=== PATIENT | male | born 1965 | race Caucasian/White ===

== ENCOUNTER → 2016-10-25 | Outpatient (CLI) | payer BC ==
[~2016-10-25] VITALS: Ht 177.8 cm; Wt 95.3 kg
[~2016-10-25] MED LIST: ALEVE220 MG PO; ALLEGRA-D 121 TABLET PO; AMARYL2 MG PO; ANTIVERT25 MG PO; ASPIRIN81 M2 PO; ATORVASTATIN CA40 MG PO; CARDIZEM60 MG PO; CARVEDILOL3.125 MG PO; CARVEDILOL6.25 MG PO; CENTRUM SILVER1 EAC3 PO; CLINDAMYCIN HC300 MG PO; CLOBETASOL TP; COREG12.5 M1 PO; FLECAINIDE ACE100 MG PO; FLONASE16 G1 BOTH NARES; GLUCOPHAGE1000 MG PO; HUMIRA40 MG/0.1 SC; JANUVIA100 MG PO; LEVEMIR FL100 UNIT/1 SC; LEVEMIR100 UNIT/2 SC; LISINOPRIL40 MG PO; ONGLYZA5 MG PO; SILVADENE20 GM TP; TAMBOCOR50 MG PO; XARELTO20 MG PO
[2016-10-25 12:44] LABS: POINT-OF-CARE METER ID UU13113694
== END | disposition home or self-care (01) ==
LOC: AMB 11:59
PROVIDERS: Internal Medicine Gastroenterology
PROC: 0DJD8ZZ Inspection of Lower Intestinal Tract, Via Natural or Artificial Opening Endoscopic (ICD-10-PCS; principal; 2016-10-25)
DX: Z12.11 Encounter for screening for malignant neoplasm of colon (principal); K64.8 Other hemorrhoids; I10 Essential (primary) hypertension; E11.9 Type 2 diabetes mellitus without complications; I48.91 Unspecified atrial fibrillation; G47.30 Sleep apnea, unspecified; I25.10 Atherosclerotic heart disease of native coronary artery without angina pectoris; E78.00 Pure hypercholesterolemia, unspecified; Z79.4 Long term (current) use of insulin; Z79.84 Long term (current) use of oral hypoglycemic drugs; Z79.899 Other long term (current) drug therapy; Z79.01 Long term (current) use of anticoagulants; Z88.0 Allergy status to penicillin
CPT/HCPCS: 82948

== ENCOUNTER 2016-11-27 07:32 | Emergency (ER) | payer BC ==
[~2016-11-27] VITALS: Ht 177.8 cm; Wt 95.4 kg
[2016-11-27 08:43] LABS: EOSINOPHIL (%) 5.6 % (0-5); EOSINOPHIL COUNT 0.4 K/uL (0-0.3); HEMATOCRIT 44.6 % (38.0-50.0); IMMATURE GRANULOCYTE (%) 0.3 % (0.0-0.7); INSTRUMENT ABS NEUTROPHIL CT 3.8 K/uL; LYMPHOCYTE COUNT 1.5 K/uL (1.0-2.8); MCH 30.3 PG (29.0-34.0); MCV 86.6 FL (86-99); MEAN PLAT.VOLUME 10.1 uM^3 (9.0-12.4); MONOCYTE (%) 9.8 % (3-12); MONOCYTE COUNT 0.6 K/uL (0-0.8); NEUTROPHIL (%) 60.6 % (45-76); NEUTROPHIL COUNT 3.8 K/uL (1.8-6.4); PLATELET COUNT 234 K/uL (156-360); RBC DIS.WIDTH-CV 12.3 % (11.8-14.6); RBC DIS.WIDTH-SD 38.8 % (39-53); RED BLOOD COUNT 5.15 M/uL (4.00-5.50); WHITE BLOOD COUNT 6.3 K/uL (4.1-10.2)
[2016-11-27 08:57] LABS: CHLORIDE 105 mEq/L (99-109); POTASSIUM 3.9 mEq/L (3.7-5.4); SODIUM 140 mEq/L (136-147)
[2016-11-27 08:59] LABS: GLUCOSE 229 mg/dL (70-99)
[2016-11-27 09:01] LABS: ANION GAP 13 MEQ/L (2-14)
[2016-11-27 09:03] LABS: GFR ESTIMATE (CALCULATED) > 59 mL/min/
[2016-11-27 09:04] LABS: TROP-I INTERPRETATION NEGATIVE; TROPONIN-I < 0.01 ng/mL (0.0-0.30); UREA NITROGEN (BUN) 18 mg/dL (9-23)
[2016-11-27 10:52] LABS: TROP-I INTERPRETATION NEGATIVE; TROPONIN-I < 0.01 ng/mL (0.0-0.30)
[2016-11-27 11:41] VITALS: BP 107/66
== END 2016-11-27 11:41 | disposition home or self-care (01) ==
LOC: EME 07:32
PROVIDERS: Emergency Medicine
PROC: 5A2204Z Restoration of Cardiac Rhythm, Single (ICD-10-PCS; principal; 2016-11-27)
DX: I48.91 Unspecified atrial fibrillation (principal); E11.9 Type 2 diabetes mellitus without complications; Z79.01 Long term (current) use of anticoagulants; Z87.442 Personal history of urinary calculi; Z88.1 Allergy status to other antibiotic agents; Z88.0 Allergy status to penicillin
CPT/HCPCS: 80048; 84484; 85025; 93005; 99281; 99285

== ENCOUNTER 2017-06-17 20:39 | Emergency (ER) | payer BC ==
[~2017-06-17] VITALS: Ht 177.8 cm; Wt 91.6 kg
[2017-06-17 21:21] LABS: EOSINOPHIL (%) 4.4 % (0-5); EOSINOPHIL COUNT 0.3 K/uL (0-0.3); HEMATOCRIT 43.3 % (38.0-50.0); IMMATURE GRANULOCYTE (%) 0.3 % (0.0-0.7); INSTRUMENT ABS NEUTROPHIL CT 3.4 K/uL; LYMPHOCYTE COUNT 1.6 K/uL (1.0-2.8); MCH 31.2 PG (29.0-34.0); MCHC 35.8 G/DL (30.0-36.0); MCV 87.1 FL (86-99); MEAN PLAT.VOLUME 10.5 uM^3 (9.0-12.4); MONOCYTE (%) 10.9 % (3-12); MONOCYTE COUNT 0.6 K/uL (0-0.8); NEUTROPHIL (%) 57.3 % (45-76); NEUTROPHIL COUNT 3.4 K/uL (1.8-6.4); PLATELET COUNT 217 K/uL (156-360); RBC DIS.WIDTH-CV 12.3 % (11.8-14.6); RBC DIS.WIDTH-SD 38.6 % (39-53); RED BLOOD COUNT 4.97 M/uL (4.00-5.50); WHITE BLOOD COUNT 5.9 K/uL (4.1-10.2)
[2017-06-17 21:24] LABS: INTER. NORMALIZED RATIO 1.2; PROTHROMBIN TIME 13.2 SEC (10.2-12.9)
[2017-06-17 21:26] LABS: PTT 37.7 SEC (25-37)
[2017-06-17 21:27] LABS: CHLORIDE 102 mEq/L (99-109); POTASSIUM 3.9 mEq/L (3.7-5.4); SODIUM 140 mEq/L (136-147)
[2017-06-17 21:29] LABS: GLUCOSE 270 mg/dL (70-99)
[2017-06-17 21:30] LABS: ANION GAP 16 MEQ/L (2-14)
[2017-06-17 21:31] LABS: TOTAL BILIRUBIN 0.7 mg/dL (0.0-1.0)
[2017-06-17 21:32] LABS: ALKALINE PHOSPHATASE 116 IU/L (3-129)
[2017-06-17 21:33] LABS: GFR ESTIMATE (CALCULATED) > 59 mL/min/ (58.99-99999)
[2017-06-17 21:34] LABS: UREA NITROGEN (BUN) 17 mg/dL (9-23)
[2017-06-17 21:39] LABS: TROP-I INTERPRETATION NEGATIVE; TROPONIN-I < 0.01 ng/mL (0.0-0.30)
[2017-06-18 00:05] VITALS: BP 135/77
== END 2017-06-18 00:05 | disposition home or self-care (01) ==
LOC: EME 20:39
PROVIDERS: Emergency Medicine
PROC: 5A2204Z Restoration of Cardiac Rhythm, Single (ICD-10-PCS; principal; 2017-06-17)
DX: I48.0 Paroxysmal atrial fibrillation (principal); E11.9 Type 2 diabetes mellitus without complications; Z79.4 Long term (current) use of insulin; Z79.01 Long term (current) use of anticoagulants; Z88.0 Allergy status to penicillin; Z88.1 Allergy status to other antibiotic agents
CPT/HCPCS: 80053; 84484; 85025; 85610; 85730; 93005; 99281; 99285; J7030

== ENCOUNTER 2018-02-10 10:18 | Emergency (ER) | payer BC ==
[~2018-02-10] VITALS: Ht 177.8 cm; Wt 93.0 kg
[2018-02-10 11:23] LABS: BASOPHIL (%) 0.5 % (0-1); EOSINOPHIL (%) 4.6 % (0-5); EOSINOPHIL COUNT 0.3 K/uL (0-0.3); HEMATOCRIT 38.6 % (38.0-50.0); HEMOGLOBIN 13.6 G/DL (12.5-16.6); IMMATURE GRANULOCYTE (%) 0.4 % (0.0-0.7); LYMPHOCYTE (%) 18.7 % (15-42); LYMPHOCYTE COUNT 1.1 K/uL (1.0-2.8); MCH 31.4 PG (29.0-34.0); MCHC 35.2 G/DL (30.0-36.0); MCV 89.1 FL (86-99); MONOCYTE (%) 11.5 % (3-12); MONOCYTE COUNT 0.7 K/uL (0-0.8); NEUTROPHIL (%) 64.3 % (45-76); NEUTROPHIL COUNT 3.6 K/uL (1.8-6.4); PLATELET COUNT 212 K/uL (156-360); RBC DIS.WIDTH-CV 12.3 % (11.8-14.6); RBC DIS.WIDTH-SD 40.5 % (39-53); RED BLOOD COUNT 4.33 M/uL (4.00-5.50); WHITE BLOOD COUNT 5.6 K/uL (4.1-10.2)
[2018-02-10 11:31] LABS: INTER. NORMALIZED RATIO 1.8
[2018-02-10 11:33] LABS: PTT 36.9 SEC (25-37)
[2018-02-10 11:38] LABS: CHLORIDE 103 mEq/L (99-109); POTASSIUM 4.4 mEq/L (3.7-5.4); SODIUM 142 mEq/L (136-147)
[2018-02-10 11:39] LABS: GLUCOSE 172 mg/dL (70-99)
[2018-02-10 11:43] LABS: CREATININE 0.8 mg/dL (0.6-1.3); GFR ESTIMATE (CALCULATED) > 59 mL/min/ (58.99-99999)
[2018-02-10 11:44] LABS: UREA NITROGEN (BUN) 24 mg/dL (9-23)
[2018-02-10 11:47] LABS: TROP-I INTERPRETATION NEGATIVE; TROPONIN-I < 0.01 ng/mL (0.0-0.30)
[2018-02-10 12:49] VITALS: BP 155/81
== END 2018-02-10 13:26 | disposition home or self-care (01) ==
LOC: EME 10:18
PROVIDERS: Emergency Medicine
DX: I48.91 Unspecified atrial fibrillation (principal); R42 Dizziness and giddiness; I10 Essential (primary) hypertension; E11.9 Type 2 diabetes mellitus without complications; Z79.4 Long term (current) use of insulin; Z88.0 Allergy status to penicillin
CPT/HCPCS: 71046; 80048; 83880; 84484; 85025; 85610; 85730; 93005